=== PATIENT | male | born 1965 | race Caucasian/White ===

== ENCOUNTER → 2020-09-07 | Day surgery (SDC) | payer OTHER ==
[~2020-09-07] MED LIST: ASPIRIN EC81 MG PO; BACTRIM DS TAB1 EACH PO; CELEBREX200 MG PO; KEFLEX500 MG PO; LORTAB PO; NEURONTIN300 MG PO; OXYCODONE HCL5 MG PO; PERCOCET 5/325 T1 EA PO; ZOFRAN 4 MG TAB4 MG PO; ZOFRAN ODT 4 MG4 MG SL
== END | disposition home or self-care (01) ==
LOC: OR 08:26
DX: T81.31XA Disruption of external operation (surgical) wound, not elsewhere classified, initial encounter (principal); F40.240 Claustrophobia
CPT/HCPCS: J0360; J0690; J1100; J2001; J2250; J2405; J2550; J2704; J2710; J3010; J7120

== ENCOUNTER 2022-01-09 20:15 | Inpatient (IN) | payer OTHER ==
[~2022-01-09] VITALS: Ht 177.8 cm; Wt 74.8 kg
[2022-01-09 21:02] LABS: HEMOGLOBIN 14.2 gm/dl (14.0-17.5); RED BLOOD COUNT 6.47 M/UL (4.20-5.50); WHITE BLOOD COUNT 9.8 K/UL (4.5-11.0)
--- NOTE | 2022-01-13 14:59 | NUR ---
patient pilar soft foot with no reported n/v/d patient have a bowel movement early this morning
[2022-01-13] MEDS ORDERED: PROTONIX 40 MG40 M1 PO (15:45)
--- NOTE | 2022-01-13 16:36 | NUR ---
patient shower with family available to assist patient. call harmon available when needed
== END 2022-01-13 17:43 | disposition home or self-care (01) | DRG 328 ==
LOC: ER1 20:15 → CDU 01-10 00:34 → M/S 01-10 00:34
PROVIDERS: Physician Assistant; ADMIT Surgery
PROC: 0DQ74ZZ Repair Stomach, Pylorus, Percutaneous Endoscopic Approach (ICD-10-PCS; principal; 2022-01-10 02:50)
DX: K26.5 Chronic or unspecified duodenal ulcer with perforation (principal); Z20.822 Contact with and (suspected) exposure to COVID-19; I10 Essential (primary) hypertension; F17.200 Nicotine dependence, unspecified, uncomplicated; Z79.899 Other long term (current) drug therapy
CPT/HCPCS: 80053; 81001; 82962; 83690; 85025; 86850; 86900; 86901; 96365; 96375; 96376; 99285; C9113; J1100; J1170; J1885; J2001; J2270; J2370; J2405; J2543; J3010; J7030; J7120; Q9967; U0002